=== PATIENT | female | born 1990 | race Caucasian/White ===

== ENCOUNTER 2018-06-02 15:31 | Emergency (ER) | payer OTHER ==
[~2018-06-02] VITALS: Ht 162.6 cm; Wt 58.6 kg
[~2018-06-02 15:31] MED LIST: CEPH250 PO; PREN-155 PO
[2018-06-02] MEDS ORDERED: DiphenhydrAMINE HCL 50 MG/ML VIAL IM ONE (16:45)
[2018-06-02] MEDS ORDERED: DEXAMETHASONE 4 MG TABLET PO ONE (16:45)
[2018-06-02 16:55] VITALS: BP 145/74
== END 2018-06-02 18:26 | disposition home or self-care (01) ==
LOC: EMS 15:34
DX: T78.1XXA Other adverse food reactions, not elsewhere classified, initial encounter (principal); J45.909 Unspecified asthma, uncomplicated; X58.XXXA Exposure to other specified factors, initial encounter
CPT/HCPCS: 96372; 99283; J1200; J8540